=== PATIENT | female | born 1950 | race Caucasian/White ===

== ENCOUNTER 2018-02-05 07:24 | Day surgery (SDC) | payer OTHER ==
[2018-02-05] VITALS (7 sets, daily range): BP systolic 103–138; BP diastolic 67–87
[~2018-02-05] VITALS: Ht 160 cm; Wt 55.2 kg
[2018-02-05] MEDS ORDERED: normal saline 1000ml 1,000 ML IV PRN (08:10)
[2018-02-05] MEDS ORDERED: albumin (human) 25% 100 ML IV solution IV PRN (08:10)
[2018-02-05] MEDS ORDERED: LIDOcaine 1%/PF 5ML 10 MG/ML VIAL SQ ONE (09:00)
[2018-02-05] MEDS ORDERED: SPIR25TA5 PO (09:11)
[2018-02-05] MEDS ORDERED: EVER7.5T PO (09:11)
[2018-02-05] MEDS ORDERED: TRAM50TA2 PO (09:11)
[2018-02-05] MEDS ORDERED: BIOT5000 PO (09:11)
[2018-02-05] MEDS ORDERED: UBIQ100C3 PO (09:11)
[2018-02-05] MEDS ORDERED: LACT1CAP26 PO (09:11)
[2018-02-05] MEDS ORDERED: EXEM25TA5 PO (09:11)
== END 2018-02-05 11:00 | disposition home or self-care (01) ==
LOC: SSTAY O 07:24
PROVIDERS: ATTEND Radiology Diagnostic Radiology
DX: R18.8 Other ascites (principal); K21.9 Gastro-esophageal reflux disease without esophagitis; Z98.51 Tubal ligation status; Z92.21 Personal history of antineoplastic chemotherapy; Z86.73 Personal history of transient ischemic attack (TIA), and cerebral infarction without residual deficits; Z92.3 Personal history of irradiation; Z85.3 Personal history of malignant neoplasm of breast; Z79.891 Long term (current) use of opiate analgesic; Z98.890 Other specified postprocedural states; Z79.899 Other long term (current) drug therapy
CPT/HCPCS: 49083; A6257; J2001; J7030; P9047